=== PATIENT | female | born 1980 | race Caucasian/White ===

== ENCOUNTER 2023-09-16 09:11 | Day surgery (SDC) | payer BC ==
[2023-09-10 11:47] VITALS: BP 146/94
[~2023-09-16] VITALS: Ht 165.1 cm; Wt 100.0 kg
[~2023-09-16 09:11] MED LIST: ARMOUR THYROID30 MG PO; B-100 COMPLEX1 EACH PO; CALCIUM 1,2001 EACH PO; CRANBERRY250 MG PO; FISH OIL 1,0001 EAC1 PO; GABAPENTIN100 MG PO; GARLIC500 M1 PO; LEVOTHYROXINE112 MCG PO; LUPRON DEPOT3.75 MG IM; MICRONOR0.35 MG PO; MULTIVITAMINS1 EAC7 PO; NAPROSYN500 MG PO; NASONEX17 GM NAS; PROVENTIL HFA6.7 GM INH; PROZAC20 MG PO; SINGULAIR5 MG PO; VITAMIN D250000 UNIT PO; VITAMIN D35000 UNIT PO; WELLBUTRIN XL150 MG PO; ZOLOFT100 MG PO; ZYRTEC10 MG PO
[2023-09-16 09:43] VITALS: BP 141/86
--- NOTE | 2023-09-16 15:50 | NUR ---
09/16/23 1550 Rashmi,Dariana 1539 PT ARRIVED TO PACU ON 6L VIA MASK, PT REACTIVE AND STARTS TO OPEN HER EYES. PT DENIES PAIN AND RN REORIENTING PT TO PACU. 1546 O2 REMOVED AND HOB INCREASED. PT REPORTS 6/10 PAIN, "IT DOESNT HURT JUST UNCOMFORTABLE." 1549 PT STARTS TO GET TEARFUL.
[2023-09-16 16:31] VITALS: BP 135/75
--- NOTE | 2023-09-16 16:58 | NUR ---
LE 1620 PATIENT BACK TO ROOM 12. VITAL SIGNS COMPLETE. PATIENT IS DROWSY BUT ORIENTED. PATIENT PAIN IS A 6/10 AND GRIMICING. PATIENT DENIES BEING NAUSEATED. PATIENT GIVEN WATER AND PUDDING. SURGICAL SITE CLEAN, DRY AND INTACT. IVF INFUSING. SCD'S ON. PATIENT TITRATED OFF OXYGEN THAT WAS AT 2 LITERS VIA NASAL CANNULA. BREATHING EQUAL AND UNLABORED. CALL LIGHT WITHIN REACH NO FUTHER NEEDS. NO QUESTIONS AT THIS TIME.
--- NOTE | 2023-09-16 17:18 | NUR ---
LE 1641 PATIENT PAINFUL PERCOCET GIVEN. PATIENT ALERT AND ORIENTED. BREATHING EQUAL AND UNLABORED. OXYGEN SATURATIONS GIVEN AT 90% ON ROOM AIR. PATIENT DENIES BEING NAUSEATED. PATIENT GIVEN GAS RELIEF MEDICINE AND TAM CATH TAKEN OUT. PATIENT SURGICAL SITE CLEAN, DRY AND INTACT. IVF INFUSING. SCD'S ON. CALL LIGHT WITHIN REACH NO FUTHER NEEDS. NO QUESTIONS AT THIS TIME.
[2023-09-16 17:20] VITALS: BP 120/64
--- NOTE | 2023-09-16 17:20 | NUR ---
LE 1713 PATIENT STILL HAVING 6/10 PAIN. PERCOCET GIVEN. CALL LIGHT WITHIN REACH NO FUTHER NEEDS. NO QUESTIONS AT THIS TIME.
[2023-09-16 17:40] VITALS: BP 125/76
--- NOTE | 2023-09-16 17:45 | NUR ---
173-PT ARRIVES TO ROOM 119 ON MED-SURG FLOOR VIA GURNEY, PT TRANSFERS SELF TO BED. VSS. VERBAL REPORT RECEIVED FROM NURIS JAVED. PT IS AWAKE AND ORIENTED BUT DROWSY. ROUSES EASILY TO VERBAL STIMULI. ABDOMINAL INCISION PAIN 2/10, TOLERABLE AT THIS TIME. PT DENIES NAUSEA. ABDOMEN IS SOFT AND TENDER, INICIONS PRESENT X3: LLQ, UMBILICUS AND RLQ, DRESSINGS C/D/I. BOWEL TONES ACTIVE X4 QUADRANTS. HRR AND LUNGS CLEAR. CONTINUOUS PULSE OXIMETER IN PLACE, PT SATS 90-94% ON RA. SCD'S ON BLE FROM ANKLES TO KNEE. MOTHER, BLAKE, IN ROOM AT BEDSIDE.
--- NOTE | 2023-09-16 17:47 | NUR ---
LE 1745 PATIENT WAS TRANSPORTED TO THE MEDICAL SURGICAL FLOOR. REPORT RECIEVED BY NURIS PEGUERO. PATIENT BED LOCKED AND IN THE LOWEST POSITION. VITAL SIGNS COMPLETE. NO QUESITIONS FROM THE NURSE OR PATIENT AT THIS TIME. NO FUTHER NEEDS.
--- NOTE | 2023-09-16 18:06 | NUR ---
PT AMBULATES TO TOILET WITH STANDBY ASSIST. GAIT IS STRONG AND STEADY. PT VOIDS 100 MLS OF YELLOW URINE. PT BACK TO BED, TOLERATES ACTIVITY WELL.
[2023-09-16 18:40] VITALS: BP 109/67
--- NOTE | 2023-09-16 18:40 | NUR ---
PT CONTINUES TO REPORT PAIN TOLERABLE AT 2/10, DENIES NAUSEA. STATES SHE IS READY TO GO HOME. PT MEETS CRITERIA. IV REMOVED, TIP INTACT, GAUZE AND COBAN DRESSING APPLIED TO SITE. PT DRESSES SELF. VS OBTAINED STABLE. DISCUSSED DISCHARGE INSTRUCTIONS WITH PT AND PT'S MOTHER, BOTH VERBALIZE UNDERSTANDING. INCISIONS X3 TO ABDOMEN CONTINUE TO BE C/D/I. PT ESCORTED VIA WHEEL CHAIR TO PRIVATE CAR DRIVEN BY MOTHER.
--- NOTE | 2023-09-21 13:08 | OR ---
[facility] [address] [place], [place] [address] Signed DATE OF OPERATION: 09/16/2023 SURGEON: Sandra Mehta DO PREOPERATIVE DIAGNOSES: 1. Dysmenorrhea. 2. Endometriosis determined by laparoscopy. POSTOPERATIVE DIAGNOSES: 1. Dysmenorrhea. 2. History of endometriosis, determined by laparoscopy with no residual gross endometriosis noted. 3. Pelvic adhesions of the left ovary and ovarian fossa. PROCEDURES PERFORMED: 1. Total laparoscopic hysterectomy. 2. Bilateral salpingectomy. 3. Left oophorectomy with lysis of adhesions. 4. Cystoscopy. INCOME TAX EXPERT: Latoya Higgins MD ANESTHESIA: General. ESTIMATED BLOOD LOSS: 25 mL. SPECIMEN: Uterus and cervix, bilateral fallopian tubes, left ovary. DRAINS: Peterson to gravity. FINDINGS: Normal external genitalia with normal clitoris, urethral meatus, bilateral [place]'s Bartholin's glands. Normal right upper quadrant on laparoscopy. Normal uterus and bilateral fallopian tubes. The left ovary is adhesed to the colon and ovarian fossa with thin adhesions that were easily brought down. No evidence of gross residual Electronically Signed By: SANDRA MEHTA DO (JD) 09/21/23 1308 PATIENT NAME: RONDA STAFFORD OPERATIVE REPORT DATE OF : 82 REPORT #: [id number] PHYSICIAN: SANDRA MEHTA DO (JD) PCP: GADIEL MAGALLANES PAC REPORT IS CONFIDENTIAL AND NOT TO BE RELEASED WITHOUT AUTHORIZATION [facility] [address] [place], [place] [address] Signed endometriosis including in the previously mentioned scar tissue. Excellent apical support and hemostasis at the end of procedure. On cystoscopy, normal bladder with bilateral ureteral jets. COMPLICATIONS: None. INDICATIONS: Ms. Stafford is a very pleasant 42-year-old female with a long history of dysmenorrhea that is quite severe. She had laparoscopy in the past that demonstrated endometriosis with reportedly abnormal left ovary. The patient has had IUD for cycle control for some years and she has completed childbearing. She desires definitive treatment of her dysmenorrhea and excision of any residual endometriosis. She also requested removal of any grossly abnormal ovaries. Risks, benefits, and alternatives were discussed in detail with the patient. The patient understands and wished to proceed with the procedure. TECHNIQUE: The patient was taken to the operating room where a time-out was performed to confirm correct patient and correct procedure. General anesthesia was adequately established. The patient was prepped and draped in dorsal lithotomy position with feet in Yellofin stirrups. The patient received Ancef 2 g preoperatively per SCIP protocol and 5000 units of heparin based on her preoperative risk stratification. Peterson catheter was inserted. A weighted speculum was placed in the vagina. The anterior lip of the cervix was grasped with an Allis clamp. The cervix was gently dilated to #7 after removal of intrauterine device. VCare uterine manipulator was placed without difficulty. Surgeon's gloves were changed. Attention was turned to the abdomen. Approximately 2 cm below the umbilicus, the skin was infiltrated with 0.25% Marcaine with epinephrine and a curvilinear incision was made. The fascia was grasped, elevated, and entered sharply. Fascial incision was extended bilaterally using Metzenbaum scissors and superior and inferior edge of the fascia was tagged with #0 Vicryl. The peritoneum was grasped with hemostats, elevated and entered sharply without difficulty. A Carlos operative port was then placed. Pneumoperitoneum was easily established. Assist ports were placed; 5 mm assist port was placed in the left lower quadrant under direct visualization without complication. An 8 mm expanding port was placed in the right lower quadrant under direct visualization without complication. Survey of the abdomen and pelvis was performed demonstrating a normal right upper quadrant, normal uterus, bilateral tubes and right ovary. The left ovary demonstrates some scarring of the ovary to the colon and ovarian fossa consistent with previously described laparoscopy findings. Decision was made to proceed with TLH, BS and LSO. This is consisent with patient's wishes and preoperative discussion. The left infundibulopelvic ligament was identified and the left ureter was identified to be noted well medial to the Electronically Signed By: SADNRA NEGRON) DO SALOMÓN 09/21/23 1308 PATIENT NAME: RONDA STAFFORD SHONDA OPERATIVE REPORT DATE OF : 82 REPORT #: [id number] PHYSICIAN: SANDRA MEHTA DO (JD) PCP: GADIEL MAGALLANES PAC REPORT IS CONFIDENTIAL AND NOT TO BE RELEASED WITHOUT AUTHORIZATION [address] [address] Signed infundibulopelvic ligament. The peritoneum was entered sharply lateral and superior to the infundibulopelvic ligament and the LigaSure device was used to skeletonize the infundibulopelvic ligament. This was then fulgurated and divided after again confirming the location of ureter noted to be well medial to the IP. Excellent hemostasis was appreciated and the cut end of the infundibulopelvic ligament was ligated using an Endostitch device. Attention was then turned to the hysterectomy. The left adnexal was elevated and dissected along the mesosalpinx to the level of the round ligament. The left round ligament was fulgurated, divided and the leaves of the broad ligament were divided. The anterior leaf was divided from the midportion of the round ligament to the left superior edge of the vaginal cuff. Dissection across the anterior portion of the vaginal cuff was performed and the bladder was pushed well below this. The posterior leaf of the broad ligament was divided from the midportion of the round to the uterosacral ligament and across the posterior edge of the vaginal cuff. The uterine vessels were identified, fulgurated and divided with excellent hemostasis. The process was repeated on the right. However, the right ovary remained in situ. The left fallopian tube was grasped, elevated, and dissected along the mesosalpinx using the LigaSure device. The utero-ovarian ligament was fulgurated and divided with excellent hemostasis. The round ligament was fulgurated and divided with excellent hemostasis appreciated. The leaves of the broad ligament were divided with anterior leaf divided from the midportion of the round down to the right superior edge of the vaginal cuff and across to complete dissection of the bladder flap. Now, the posterior leaf of the broad ligament was divided in the midportion of the round to the uterosacral ligament and then across the posterior edge of the vaginal cuff. The right uterine vessels were identified, fulgurated, and divided with excellent hemostasis. The pelvis was rinsed, found to be hemostatic. Colpotomy was then performed using Sonicision dividing along the green edge of the vaginal cuff. This VCare uterine manipulator, cervix and the uterus and attached portions were then delivered through the vagina without difficulty and sent to Pathology for further evaluation. A wet lap inside of a glove was placed in the vagina to maintain pneumoperitoneum. The pelvis was then irrigated, found to be hemostatic. The colpotomy was then closed using V-Loc suture with an Endostitch device with careful attention to incorporate the utero-ovarian ligaments bilaterally and the vaginal epithelium with each bite. Excellent apical support and hemostasis was appreciated. Infundibulopelvic ligament and the entire dissection portion of the pelvis was completely hemostatic. Pneumoperitoneum was reduced and trocars were removed. Infraumbilical fascia was then reapproximated using 0 Vicryl in a running nonlocked manner. Skin was reapproximated using 4-0 Monocryl. Attention was then turned to the cystoscopy. The Peterson catheter was removed and a 70-degree cystoscope was placed in the urethral meatus and advanced under direct visualization to the bladder. Normal bladder dome and bilateral ureteral jets were appreciated. Bladder was drained. Peterson catheter was reinserted. The patient was taken to PACU in good and stable condition. Sponge, needle, instrument count was correct x2 at the end of the procedure. Dr. Higgins Electronically Signed By: SANDRA MEHTA DO (JD) 09/21/23 1308 PATIENT NAME: RONDA STAFFORD OPERATIVE REPORT DATE OF : 82 REPORT #: [id number] PHYSICIAN: SANDRA MEHTA DO (JD) PCP: GADIEL MAGALLANES PAC REPORT IS CONFIDENTIAL AND NOT TO BE RELEASED WITHOUT AUTHORIZATION [address] [address] Signed was present and participated in all portions of the procedure. Sandra Mehta DO JLAKESHIA/MODL /[id number] Copies: ~ Electronically Signed By: SANDRA MEHTA DO (JD) 09/21/23 1308 PATIENT NAME: RONDA STAFFORD SHONDA OPERATIVE REPORT DATE OF : 82 REPORT #: [id number] PHYSICIAN: SANDRA MEHTA DO (JD) PCP: GADIEL MAGALLANES PAC REPORT IS CONFIDENTIAL AND NOT TO BE RELEASED WITHOUT AUTHORIZATION
--- NOTE | 2023-09-24 16:46 | PATH ---
[facility] [address] [place], [place] [address] Signed SPECIMEN(S): A UTERUS, CERVIX, BILAT TUBES, LT OVARY SPECIMEN SOURCE: A. UTERUS, CERVIX, BILAT TUBES, LT OVARY CLINICAL HISTORY: Abnormal uterine bleeding, endometriosis FINAL PATHOLOGIC DIAGNOSIS: Uterus, cervix, bilateral tubes and left ovary: - Disordered proliferative endometrium with focal glandular atypia (see comment). - Endometrial adenomyosis. - Left ovary with follicle cysts. - Benign bilateral oviducts. - Benign endo and ectocervix. COMMENT: The endometrium is thin and has disordered proliferative features with focal glandular atypia of uncertain significance. There is no evidence of significant hyperplasia or unequivocal carcinoma on these sections and the atypia of concern is confined to the endometrium. JVR:naeemr:barby MICROSCOPIC EXAMINATION: Histologic sections of all submitted blocks are examined by light microscopy. These findings, together with the gross examination, support the pathologic diagnosis. GROSS DESCRIPTION: The specimen, labeled and designated "[place], uterus, cervix, bilateral fallopian tubes and left ovary," is received in formalin and consists of uterus and cervix with attached left ovary and fallopian tube and within the container right fallopian tube. The uterus measures 3.9 cm from cornu to cornu, 3.0 cm anterior to posterior and 7.2 cm from cervix to fundus. Serosal surface is pink-wynn, smooth. The trimmed uterus weight 64 g. The ectocervix is pink-wynn, smooth and measure 4.6 x 4.3 cm. Sectioning through the cervix reveal pink-wynn homogenous tissue. The endometrial cavity is triangular shaped and measure 2.4 x 1.5 cm. It is lined with pink-wynn, smooth endometrium. Sectioning through the myometrium reveals one PATIENT NAME: RONDA STAFFORD PATHOLOGY DATE OF : 82 REPORT #: [id number] PHYSICIAN: STEVE PATHOLOGY PCP: GADIEL MAGALLANES PAC REPORT IS CONFIDENTIAL AND NOT TO BE RELEASED WITHOUT AUTHORIZATION [facility] [address] [place], [place] [address] Signed white, firm, ill-defined nodule that measure 0.6 cm in greatest dimension. The remaining of the myometrium is pink-wynn homogenous. The myometrium measures 1.4 cm in thickness. The endometrium measures 0.1 cm in thickness. Both fallopian tube shows fimbria and violaceous and smooth serosa. The right fallopian tube measures 6.5 cm in length and 0.8 cm in diameter. The left fallopian tube measures 6.5 cm in length and 0.7 cm in diameter. Sectioning through both tubes is grossly unremarkable. The left ovary measures 3.0 x 2.5 x 1.5 cm. Serosal surface is violaceous, smooth and congested. Serosal surface is disrupted. Sectioning through the ovary reveal multiple ovarian cyst that range in size from 0.2 to 0.8 cm in diameter. The cysts are filled with a hemorrhagic fluid and coagulated blood. Cassette Summary: (A1) cervix, floor representative sections, posterior inked (A2) endomyometrium and ill-defined nodule, floor representative sections (A3) right fallopian tube, floor representative sections (A4) left fallopian tube, floor representative sections (A5) left ovary, floor representative sections JS (under the direct supervision of a pathologist) Additional sections of endometrium are submitted in cassette (A6-A7) at the request of Dr. Corbett (AC 09/23/2023) The Gross Description was prepared using a voice recognition system. The report was reviewed for accuracy; however, sound-alike word errors, addition and/or deletions may occur. If there is any question about this report, please contact Client Services. PERFORMING LABORATORY: Technical component was performed by [facility], [address] [place] [address] (CLIA# [id number]). Diagnostician: Fitz Corbett MD Pathologist Electronically Signed 09/24/2023 Copies: ~ PATIENT NAME: RONDA STAFFORD [facility] PATHOLOGY DATE OF : 82 REPORT #: [id number] PHYSICIAN: STEVE BARNEY PCP: GADIEL MAGALLANES PAC REPORT IS CONFIDENTIAL AND NOT TO BE RELEASED WITHOUT AUTHORIZATION
== END 2023-09-16 18:40 | disposition home or self-care (01) ==
LOC: DS 09:11 → OPS 09:11 → DS 11:45 → MS 17:44 → OPS 18:40
PROVIDERS: ATTEND Obstetrics & Gynecology
PROC: 0UT94ZZ Resection of Uterus, Percutaneous Endoscopic Approach (ICD-10-PCS; principal; 2023-09-16 11:45)
PROC: 0UT74ZZ Resection of Bilateral Fallopian Tubes, Percutaneous Endoscopic Approach (ICD-10-PCS; 2023-09-16 11:45)
DX: N80.9 Endometriosis, unspecified (principal); N80.03 Adenomyosis of the uterus; N83.02 Follicular cyst of left ovary; E03.9 Hypothyroidism, unspecified; F32.A Depression, unspecified; E28.2 Polycystic ovarian syndrome
CPT/HCPCS: 00840; A9270; J0131; J0690; J1100; J1644; J1885; J2250; J2405; J2704; J3010; J3490; J7121; U0002